=== PATIENT | male | born 1960 | race Caucasian/White ===

== ENCOUNTER → 2020-07-14 08:23 | Outpatient (CLI) | payer OTHER, SELFPAY ==
[2020-07-14] MEDS: COVID-19 VACC #1, MRNA(MOD) 100 MCG/0.5 ML VIAL IM (08:30)
== END ==
PROVIDERS: Visit Provider Internal Medicine
DX: Z23 Encounter for immunization (principal)
CPT/HCPCS: 0011A; 91301

== ENCOUNTER → 2020-08-11 08:12 | Outpatient (CLI) | payer OTHER, SELFPAY ==
[2020-08-11] MEDS: COVID-19 VACC #2, MRNA(MOD) 100 MCG/0.5 ML VIAL IM (08:17)
== END ==
PROVIDERS: Visit Provider Internal Medicine
DX: Z23 Encounter for immunization (principal)
CPT/HCPCS: 0012A; 91301

== ENCOUNTER → 2021-06-07 10:21 | Outpatient (CLI) | payer OTHER, SELFPAY ==
[2021-06-07 11:23] LABS: COVID19 -Nasal RAPID Negative (Negative)
== END ==
PROVIDERS: Visit Provider Family Medicine Sleep Medicine
DX: Z20.822 Contact with and (suspected) exposure to COVID-19 (principal)
CPT/HCPCS: 87635; C9803

== ENCOUNTER 2021-06-09 12:43 | Day surgery (SDC) | payer OTHER, SELFPAY ==
--- NOTE | 2021-06-09 12:23 | P.HP_ITS ---
History of Present Illness History of Present Illness Chief complaint: SCREENING COLONOSCOPY Narrative: 60 Years Old Male seen today for consideration of a screening colonoscopy. There have been no lower GI symptoms suggesting disease such as change in bowel habits, bleeding, abdominal pain or anemia. There's been no family history of colon cancer or colon polyps. Overall health issues have been stable, including no major cardiac events for at least 6 weeks. 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 Exam Narrative Exam Narrative: GENERAL: Alert and oriented, appearing stated age and in no acute distress. HEENT: Head normocephalic/atraumatic. Extraocular movements intact. LUNGS: Clear to ausculation bilaterally, no wheezes, rhonchi or rales. CV: Normal S1 and S2 with regular rate and rhythm, no audible murmurs, rubs or gallops. ABDOMEN: Soft, non-tender, non-distended, no organomegaly. Positive bowel sounds. EXTREMITIES: No clubbing, cyanosis, or edema. NEURO: Cranial nerves II through XII grossly intact, no focal deficits. PSYCH: Alert and oriented x 3. SKIN: No concerning lesions. Assessment & Plan Assessment & Plan narrative: 1. Screening for colon cancer Plan for colonoscopy. The nature and character of the procedure as well as anticipated results were discussed. The possibility of not completing the procedure was also discussed. Possible complications including aspiration pneumonia, bleeding, perforation and reaction to medications either for sedation or preparation and missed lesions were discussed. Questions were answered and proceeding to the colonoscopy was elected. Informed consent signed. I sincerely appreciate the referral allowing me to participate in this patient's care. Please contact me with any questions or concerns.
--- NOTE | 2021-06-09 12:25 | PM.OP.COLON ---
Operative Date/Time/Diagnoses Date of procedure: 06/09/21 Procedure Notes SCOAP/Timeout: 1:50 p.m. Procedure in detail: ENDOSCOPIST: Angelina Connell MD Sedation RN: Elizabeth Lowery RN Sedation start time: 1:51 p.m. Sedation end time: 1:57 p.m. PROCEDURE: Colonoscopy INDICATIONS: 1. Screening for colon cancer MEDICATION: Levsin 0.125 mg sublingual, incremental doses of Versed and fentanyl until appropriate level sedation achieved. ASA CLASS: 2 CECAL WITHDRAWAL TIME: 6 minutes COMPLICATIONS: None. EXTENT OF PROCEDURE: Cecum. QUALITY OF PREP: Good with portions of liquid stool. PROCEDURE: Prior to insertion of the colonoscope, a digital rectal examination was accomplished with circumferential palpation of the distal rectal mucosa without significant findings being noted. The high-definition colonoscope was passed into the rectum in the usual fashion and advanced over to the cecum without difficulty. The ileocecal valve, appendiceal stoma, and medial wall all could be inspected and no abnormalities were seen. ASCENDING COLON: As the colonoscope was withdrawn, care was taken to expose and inspect the haustral folds and no abnormalities were seen. HEPATIC FLEXURE: Normal, no polyps, diverticula or other abnormalities. TRANSVERSE COLON: Normal, no polyps, diverticula or other abnormalities. DESCENDING COLON: Normal, no polyps, diverticula or other abnormalities. SIGMOID COLON: Normal, no polyps, diverticula or other abnormalities. RECTUM: Normal. J maneuver was produced. There was no significant perianal disease. The J maneuver was broken. The remainder of the rectum was inspected and there was no external hemorrhoid disease. The scope was withdrawn. IMPRESSION: 1. Normal colonoscopy PLAN: 1. Repeat colonoscopy in 10 years. The possibility of a missed lesion including a malignancy has been discussed with the patient previously. Potential alarm symptoms have been discussed and should be reported immediately.
[2021-06-09 13:01] VITALS: BP 150/93; PULSE 73; RESP 12; TEMP 36.8; O2SAT 98; BMI 23.7
[2021-06-09] MEDS: MIDAZOLAM 5 MG/5 ML VIAL IV (13:58)
[2021-06-09] MEDS: fentaNYL 250 MCG/5 ML INJ IV (13:58)
[2021-06-09 14:17] VITALS: BP 114/84; PULSE 80; RESP 15; TEMP 36.7; O2SAT 98
[2021-06-09 14:23] VITALS: BP 117/75; PULSE 74; RESP 15; O2SAT 97
[2021-06-09 14:27] VITALS: BP 109/81; PULSE 80; RESP 10; O2SAT 97
--- NOTE | 2021-06-09 14:41 | SUR.PHASEI ---
Stable PACU stay
--- NOTE | 2021-06-09 14:46 | SUR.PHASEII ---
Pt ready to go, pt left in stable condition.
== END 2021-06-09 14:50 | disposition home or self-care (01) ==
PROVIDERS: PCP Student in an Organized Health Care Education/Training Program; Referring Provider Student in an Organized Health Care Education/Training Program; Visit Provider Student in an Organized Health Care Education/Training Program
PROC: 0DJD8ZZ Inspection of Lower Intestinal Tract, Via Natural or Artificial Opening Endoscopic (ICD-10-PCS; CPT 45378; principal; 2021-06-09 13:45)
DX: Z12.11 Encounter for screening for malignant neoplasm of colon (principal); I10 Essential (primary) hypertension; J45.20 Mild intermittent asthma, uncomplicated; E78.5 Hyperlipidemia, unspecified
CPT/HCPCS: 45378; J2250; J3010

== ENCOUNTER 2023-03-24 19:30 | Emergency (ER) | payer OTHER, SELFPAY ==
[2023-03-24 19:31] VITALS: BP 165/96; PULSE 93; RESP 16; TEMP 37.1; O2SAT 98; BMI 25.0
--- NOTE | 2023-03-24 19:40 | DI.RAD.S_ITS ---
PROCEDURE: XR HAND RT MIN 3V INDICATIONS: injured R hand on a liver trimmer TECHNIQUE: 3 views of the hand(s) acquired. COMPARISON: None. FINDINGS: Bones: No fractures or dislocations. Carpal bones are normally aligned. No suspicious bony lesions. Soft tissues: No suspicious soft tissue calcifications. Soft tissue edema involving the distal aspect of the 1st and 3rd fingers. No radiopaque soft tissue foreign bodies. IMPRESSION: No acute bony abnormality. No radiopaque soft tissue foreign bodies. Dictated by: Remy Lenz M.D. on 03/24/2023 at 19:58 Approved by: Remy Lenz M.D. on 03/24/2023 at 19:59
[2023-03-24] MEDS: BACITRACIN OINT 0.9 GM PCKT 1 APPLIC TOP (22:07)
[2023-03-24] MEDS: HYDROCODONE/ACET 5/325 TABLET 1 TAB PO (22:14)
--- NOTE | 2023-03-24 22:16 | PC.NURSE ---
hand cleaned with water and telfa pads applied to lacerations splint applied to 3rd digit and hand wrapped with guaze
[2023-03-24 22:18] VITALS: BP 163/98; PULSE 85; RESP 18; O2SAT 98
--- NOTE | 2023-03-25 03:35 | ED_ITS ---
HPI - Wound/Laceration General Chief Complaint: Wound/Laceration Stated Complaint: rt hand lac/middle finger and thumb Time Seen by Provider: 03/24/23 19:59 Source: patient Mode of arrival: Ambulatory History of Present Illness HPI narrative: 62-year-old man presenting with lacerations to his right thumb and middle finger. These occurred shortly prior to arrival, occurred when he picked up on electric trimmer meat and unfortunately briefly turned it alone. Says he has some numbness in the long finger of his right hand, he is right-handed. Last tetanus booster was less than 10 years ago. Related Data Previous Rx's Medication Instructions Recorded fexofenadine 180 mg tablet 180 mg PO Q DAY ##30 09/06/10 Allergies Allergy/AdvReac Type Severity Reaction Status Date / Time No Known Drug Allergies Allergy Verified 06/09/21 12:58 Patient History Social History household members: spouse Smoking Status: Never smoker alcohol intake: current Smoking Status: Never smoker alcohol intake frequency: a few times a month Alcohol type: beer Substance Use Type: does not use Exam Initial Vital Signs Initial Vital Signs: Vital Signs Temperature 98.7 F 03/24/23 19:31 Pulse Rate 93 H 03/24/23 19:31 Respiratory Rate 16 03/24/23 19:31 Blood Pressure 165/96 H 03/24/23 19:31 Pulse Oximetry 98 03/24/23 19:31 Oxygen Delivery Method Room Air 03/24/23 19:31 Const General: No acute distress Resp Effort & Inspection: normal respiratory effort Skin General: no rashes or lesions noted Extrem Other: Right hand has lacerations to the long finger and thumb. Thumb laceration is 2 cm long not gaping significantly and oblique across the pad of the thumb. The laceration to the long finger extends from the volar midline over the distal phalanx up to the nail bed on the radial aspect. There is a small nail bed laceration with good alignment. He has decreased light touch sensation in the tip of the long finger he has intact capillary refill. He has full flexion and extension of both the long finger and the thumb. Long finger laceration is also 2 cm. Procedures Laceration Repair Laceration 1: Site: hand (Long finger) Side (If applicable): right Size (cm): 2 Description: linear and other (Small laceration to the nail bed with good alignment nail was not removed, I did carefully approximate the edge of the nail) Local Anesthetic: lidocaine 1% (Digital block) Pre-repair: irrigated extensively and cleansed with chlorhexadine Skin layer suture size: 5-0 Technique: simple, interrupted Laceration 2: Site: hand (Thumb of right hand) Size (cm): 2 Description: linear Local Anesthetic: lidocaine 1% Skin layer closed with: nylon Skin layer suture size: 5-0 Number of sutures: 2 Course Course Course Narrative: 62-year-old with laceration to the right thumb and right long finger that was sutured. Tetanus is up-to-date. Orders Ordered: ED Orders 03/24/23 19:40 XR hand RT min 3V Stat Discontinued Medications Hydrocodone Bitart/Acetaminophen (Hydrocodone/Acet 5/325 Tablet) 1 tab PO NOW ONE Stop: 03/24/23 22:03 Last Admin: 03/24/23 22:14 Dose: 1 tab Documented By: PAT Bacitracin (Bacitracin Oint 0.9 Gm Pckt) 1 applic TOP NOW ONE Stop: 03/24/23 22:02 Last Admin: 03/24/23 22:07 Dose: 1 applic Documented By: BRIDGET Vital Signs Vital signs: Vital Signs - 8 hr 03/24/23 22:18 Pulse Rate 85 Respiratory Rate 18 Blood Pressure 163/98 H Pulse Oximetry 98 Oxygen Delivery Method Room Air MDM - Wound/Laceration MDM Narrative Medical decision making narrative: Suturable laceration to the thumb and long finger of the right hand. No foreign body, minimal injury to the nailbed of the long finger wound was sutured and dressed Discharge Plan Departure Patient Disposition: Home Clinical Impression: Laceration Instructions: How to Care for a Laceration After Repair, DI for Laceration Repair Activity Restrictions/Additional Instructions: Keep wound clean and covered with antibiotic ointment, change dressing daily. Use the provided protective splint on your long fingertip. Elevate your hand above the level of the heart when able, may use ibuprofen and/or acetaminophen at usual [id number] doses and frequencies as needed for pain. Redness swelling or discharge from the wound recheck in the emergency department. Stitches need to be removed in 8-10 days, this can be done here or with your primary care provider. Prescriptions: No Action fexofenadine 180 MG tablet 180 mg PO Q DAY Qty: 30 3RF Referrals: Angelina Connell MD [Primary Care Provider] - Stand Alone Forms: Patient Portal/API
== END 2023-03-24 22:20 | disposition home or self-care (01) ==
PROVIDERS: Emergency Provider Emergency Medicine; PCP Student in an Organized Health Care Education/Training Program
DX: S61.011A Laceration without foreign body of right thumb without damage to nail, initial encounter (principal); S61.312A Laceration without foreign body of right middle finger with damage to nail, initial encounter; W29.3XXA Contact with powered garden and outdoor hand tools and machinery, initial encounter
CPT/HCPCS: 12002; 73130; 99283

== ENCOUNTER → 2024-03-06 15:09 | Outpatient (ROUT) | payer OTHER, SELFPAY ==
[2024-03-06 15:53] LABS: D Dimer 463 ng/ml (<500)
== END ==
PROVIDERS: PCP Student in an Organized Health Care Education/Training Program; Visit Provider Registered Nurse
DX: R00.0 Tachycardia, unspecified (principal)
CPT/HCPCS: 85379

== ENCOUNTER → 2024-03-06 15:32 | Outpatient (CLI) | payer OTHER, SELFPAY ==
--- NOTE | 2024-03-06 15:38 | DI.RAD.S_ITS ---
PROCEDURE: XR CHEST 2V INDICATIONS: TACHYCARDIA TECHNIQUE: 2 views of the chest were acquired. COMPARISON: None. FINDINGS: Surgical changes and devices: None. Lungs and pleura: Linear right basilar opacity. Mediastinum: Mediastinal contours are normal. Heart size is normal. Bones and chest wall: No suspicious bony abnormalities. Soft tissues appear unremarkable. IMPRESSION: Linear right basilar opacity likely atelectasis. Dictated by: Cheli Pettit M.D. on 03/06/2024 at 16:19 Approved by: Cheli Pettit M.D. on 03/06/2024 at 16:19
== END ==
PROVIDERS: PCP Registered Nurse; Referring Provider Registered Nurse; Visit Provider Registered Nurse
DX: R00.0 Tachycardia, unspecified (principal); R05.1 Acute cough; R06.09 Other forms of dyspnea
CPT/HCPCS: 71046; 85379

== ENCOUNTER → 2024-03-24 13:52 | Outpatient (CLI) | payer OTHER, SELFPAY ==
--- NOTE | 2024-03-24 14:08 | DI.CT.S_ITS ---
PROCEDURE: CT CHEST W CON INDICATIONS: Tachycardia, unspecified TECHNIQUE: After the administration of intravenous contrast, 5 mm thick sections acquired from the pulmonary apices to the posterior costophrenic angles. 1 mm axial lung, 5 mm thick coronal and sagittal reformats and 7 mm axial MIP were acquired. For radiation dose reduction, the following was used: automated exposure control, adjustment of mA and/or kV according to patient size. COMPARISON: None. FINDINGS: Image quality: Diagnostic. Lower Neck: No enlarged lymph nodes. Thyroid: No thyroid nodules which require sonographic follow up, per consensus guidelines. Axillae: No enlarged lymph nodes. Chest Wall: Unremarkable. Bones: Unremarkable. Lungs and Pleura: No pneumothorax or pleural effusions. No suspicious nodules. Areas of patchy linear consolidation at the lung bases likely atelectasis or scarring. Heart: Heart size is normal. No pericardial effusion. Coronary arterial calcifications are noted. Thoracic Vessels: There is fusiform dilation of the ascending thoracic aorta up to 40 mm in diameter. Pulmonary artery appears normal in caliber. No findings to suggest aortic dissection. Mediastinum and Renata: No enlarged lymph nodes. Esophagus: No wall thickening. No hiatal hernia. Upper Abdomen: Visualized upper abdomen solid organs and bowel loops appear normal. IMPRESSION: 1. Fusiform ascending thoracic aortic aneurysm up to 4 cm in diameter. 2. Coronary arterial calcifications. Dictated by: Jose Dominguez M.D. on 03/24/2024 at 15:19 Approved by: Jose Dominguez M.D. on 03/24/2024 at 15:26
== END ==
PROVIDERS: PCP Registered Nurse; Referring Provider Registered Nurse; Visit Provider Registered Nurse
DX: I71.23 Aneurysm of the descending thoracic aorta, without rupture (principal); I25.10 Atherosclerotic heart disease of native coronary artery without angina pectoris; R00.0 Tachycardia, unspecified
CPT/HCPCS: 71260; Q9967